=== PATIENT | male | born 1960 | race Caucasian/White ===

== ENCOUNTER → 2020-05-23 08:52 | Outpatient (CLI) | payer OTHER, SELFPAY ==
[2020-05-24 10:24] LABS: COVID19 Sendout Not Detected (Not Detect)
== END ==
PROVIDERS: Visit Provider Physician Assistant
DX: Z01.812 Encounter for preprocedural laboratory examination (principal)
CPT/HCPCS: 87635

== ENCOUNTER 2020-05-25 06:01 | Inpatient (IN) | payer OTHER, SELFPAY ==
[2020-05-12 08:59] VITALS: BMI 23.1
[2020-05-25] VITALS (19 sets, daily range): BP systolic 124–162; BP diastolic 64–95; PULSE 71–92; RESP 11–19; TEMP 35.9–37.4; O2SAT 94–100; BMI 21.7
--- NOTE | 2020-05-25 | DI.RAD.S_ITS ---
PROCEDURE: XR LUMBAR SPINE 2-3V INDICATIONS: L4-5, L5-S1 TLIF TECHNIQUE: 2 intraoperative fluoroscopic views of the lumbar spine were acquired. COMPARISON: None. FINDINGS: Intraoperative fluoroscopic images shows transpedicular fusion of L4-S1 vertebral bodies with intervertebral spacer placement at L4-5 and L5-S1 levels. IMPRESSION: Fluoroscopy guidance was provided intraoperatively for fusion of L4-S1 vertebral bodies. Dictated by: Miguel Shaw M.D. on 05/25/2020 at 12:10 Approved by: Miguel Shaw M.D. on 05/25/2020 at 12:11
[2020-05-25] MEDS: LACTATED RINGERS 1,000 ML 42 ML IV ×2 (07:10→09:45)
--- NOTE | 2020-05-25 07:36 | PM.PREOP ---
Pre-operative Note COVID-19 COVID-19 status: Negative Result date/Date tested (Pos, Neg/Pending): 05/23/20 Interval Note History & Physical reviewed/Exam performed by Physician: Yes Changes to H&P: No
[2020-05-25] MEDS: CLINDAMYCIN 900 MG/50 ML PIGGYBACK 50 MG IV ×3 (07:46→23:40)
--- NOTE | 2020-05-25 08:22 | SUR.OPER ---
Prone on spine table, head in foam head support, padded chest and pelvic supports, gel pad at knees, lower legs supported by pillows; nipples, genitalia and toes free of pressure, arms secured on foam padded arm boards at <90 degrees abduction. Tape over blanket at thigh secured to table.
[2020-05-25] MEDS: BUPIVACAINE LIPOSOME 266 MG/20 ML VIAL INJ (08:35)
[2020-05-25] MEDS: BUPIVACAINE 0.25% W/ EPI 30 ML VIAL INJ (08:35)
--- NOTE | 2020-05-25 11:29 | P.OP_ITS ---
Operative Date/Time/Diagnoses Date of procedure: 05/25/20 Time of procedure: 08:09 Pre-op diagnosis: 1. Lumbar spinal stenosis L4-5, L5-S1 2. Lumbar spondylosis with radiculopathy L4-5, L5-S1 3. L5 pars defect Post-op diagnosis: same Procedure & Clinicians Procedure: 1. L4-5, L5-S1 Postero-lateral and posterior interbody fusion 2. L4-5, L5-S1 interbody cage placement. 3. L4-5, L5-S1 decompressive laminectomy with bilateral facetecomies 4. L4-5, L5-S1 Posterior segmental instrumentation 5. Danielson of bone marrow from iliac crest 6. Utilization of microsurgical technique and operating microscope Same procedure as scheduled: Yes Indications: Patient has been having chronic back pain and worsening lumbar radiculopathy. Patient failed multiple conservative management with worsening pain weakness and numbness in her lower extremity. Patient has been having difficulty performing activity of daily living. After discussing risks benefits of treatment options, patient elected proceed with surgery. Surgeon: Starla Daniels Flight Follower: Lisette Carvalho Click Yes if Unassisted: No Anesthesia Type: General Operative Notes Closure Type: primary Specimen(s): none sent Prosthetic devices, grafts, tissues, transplants, or devices: Globus revolve screws, Rise cages Applied: catheter Estimated Blood Loss (mL): 150 Blood products transfused: none Procedure in detail: Patient was seen in the preoperative area. Risks and benefits of the surgery was discussed with the patient. Informed consent was obtained from the patient and placed in the chart. Surgical site was marked. Patient was taken to the operative room. General anesthesia was administered. Prophylactic antibiotic was given to the patient less than 30 min before the incision was made. Patient was placed into a prone position on the [facility] e. Patient's back was then prepped and draped in the sterile fashion. Time-out was performed at this time. Using AP and lateral C-arm imaging the interval between L4-S1 was identified and marked on patient's back. A 2 inch incision 2 in from midline was made on the right side first. The fascia was incised in line with skin incision. Globus MARS retractors was placed inside the incision and docked onto the L4 and L5 lamina. Using microsurgical technique and operating microscope, a L4 and L5 laminectomy and L4-5 L5-S1 facetectomy was performed using a Kerrison rongeur. During the process of decompression more than 75% of bilateral L4-5 L5-S1 facets were removed in order to decompress the spinal canal and the lateral recess. Patient was found have severe neuroforaminal stenosis which was fully decompressed after the laminectomy and facetectomy was completed at L4-5 L5-S1 level. The L4-5 L5-S1 level was grossly unstable after the decompression was completed and requiring the fusion procedure. The disc space at L4-5, L5-S1 was identified. And a total diskectomy was performed at L4-5, L5-S1 level. The endplates were decorticated using a rasp and shaver. The total diskectomy and d ecortication was performed at L4-5, L5-S1 level in order to to accomplish a L4- 5, L5-S1 fusion. The local bone from the laminectomy and facetectomy was saved for local bone grafting. After the total diskectomy and decortication was completed, Trifecta bone graft material was combined with local bone that was harvested earlier. At this time, a separate skin is incision was made over the iliac crest. A Jamshidi needle was inserted into the iliac crest through a separate skin incision. 5 cc of bone marrow aspiration was obtained through the separate skin incision using a Jamshidi needle from the iliac crest. The bone marrow aspiration was combined with local bone and the Trifecta bone grafting material. The bone grafting material was placed into the L4-5, L5-S1 interbody space along with two cages, one expandable cage at each level. The cages were expanded to their maximum height using the torque limiting screwdriver. At this time a mirror image incision was made on the left side. The fascia was incised in line with the skin incision. Globus MARS retractor was inserted and docked onto the L4-5, L5-S1 posterolateral gutter. Using the power drill, posterior-lateral decortication was performed at L4-5, L5-S1 level until bleeding cortical bone was identified. The remaining bone grafting material was placed into the L4-5 L5-S1 posterior lateral gutter he order to accomplish po sterolateral fusion at the L4-5 L5-S1 levels. Using the double C-arm technique, pedicle screws were placed into the L4, L5, S1 pedicles bilaterally. This was done by placing the Jamshidi needle into the pedicles, then placing the guidewires over the Jamshidi needle, and finally placing the cannulated screws over the guidewires bilaterally. After the pedicle screws were placed, 2 titanium rods was locked into the heads of the pedicle screws using locking caps and torque limiting screwdriver. Total 6 pedicles screws were placed. After all the hardware was placed, and confirmed with AP and lateral C-arm imaging, the wound was then irrigated with sterile normal saline and packed with Ray-Yue gauze for 3 min to accomplish hemostasis. After the gauze was removed the deep fascia was closed with #1 Vicryl suture. The subcutaneous layer was closed with 2-0 Vicryl. The skin was closed with skin davis. Patient tolerated the procedure well. There were no complications. Complications: none Post-operative Condition: stable Disposition: PACU Plan for aftercare: Admit to inpatient hospital
[2020-05-25] MEDS: fentaNYL 100 MCG/2 ML INJ IV ×2 (11:37→11:45)
[2020-05-25] MEDS: SODIUM CHLORIDE 0.9% 1,000 ML 100 ML IV (12:30)
[2020-05-25] MEDS: HYDROMORPHONE 0.5 MG INJ IV ×2 (13:32→16:07)
[2020-05-25] MEDS: ACETAMINOPHEN 325 MG TABLET 650 MG PO (13:32)
[2020-05-25] MEDS: OXYCODONE IR 5 MG TABLET 10 MG PO ×3 (13:49→19:34)
--- NOTE | 2020-05-25 14:15 | CM.DANOTE ---
DCP: Case received, EMR reviewed. Checked on patient, was at bedside. He just arrived from surgery, and was having some discomforts. Name of this case checker was placed on board, and let spouse know that this case checker will check in tomorrow when patient is more stable. Was able to complete the DCP assessment based on the information available in his chart, along with H&P. Patient is a 59 year old male who admitted early this morning to the care of the orthopedic team. PCP: Unknown at this time, patient lives in [place]. Payer: [employer]. Patient came to the hospital for a surgical procedure. He had L4-5, L5-S1 postero lateral and posterior interbody fusion. Patient has history of osteoarthritis of the spine. He had been complaining of chronic back and hip pain. Checked on patient. Just came back from surgery, at bedside. Patient was awake, but moaning in pain. P: DCP will check in with patient tomorrow for any needs. Opal Yoo RN/Car Filler
--- NOTE | 2020-05-25 15:23 | PC.NURSE ---
Post-op: Late entry Arrived to room 212 at 1220. Alert and oriented X3. Rated back pain 5/10 upon arrival, but pain quickly up to 9/10 with patient writhing, moaning and uncomfortable. Medicated with PRN IV Dilaudid, Tylenol and Oxycodone per e-mar, with patient now reporting pain down to 2/10 and resting quietly. Have assisted to reposition multiple times, instructed re: logrolling and spine precautions but will need reinforcement. Fresh ice pack to back. Dressing mid low back C/D/I. CMS+, denies paresthesias. Netflix patent to gravity. IVF per orders, site in R hand WNL. SCD's to BLE's. VSS, room air with cont. pulse ox in place. Tolerating ice chips/water without N/V. Oriented to room and call light, encouraged to make needs known. Call light within reach, bed alarm on.
--- NOTE | 2020-05-25 16:24 | PT.IIE ---
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, lumbosacral region (05/25/20) Spinal stenosis, lumbar region without neurogenic claudication (05/25/20) Surgery Performed Operation Date: 05/25/20 07:45 Actual Procedures p L4-5, L5-S1 TLIF w/ posterior instrumentation - Starla Daniels MD Surgical History (Last Updated 05/12/20 @ 09:12 by Ariadna Rusos RN) History of vasectomy (Acute) Hx of hernia repair (Acute) Hx of removal of cyst (Acute) Medical History (Last Updated 05/12/20 @ 09:12 by Ariadna Russo RN) Arthritis (Acute) Former smoker (Acute) CROW (obstructive sleep apnea) (Acute) Panic attacks (Acute) Pre-diabetes (Acute) Sciatica (Acute) Spinal stenosis (Acute) Physical Therapy Inpatient Evaluation/Re-Eval M1 PT/OT-IP Prior Functional Status Start: 05/25/20 10:49 Freq: NEEDED Status: Active Protocol: Document 05/25/20 16:02 AW (Rec: 05/25/20 16:24 AW [email or web address]) Medical Review Prior Functional Status Medical History Reviewed Yes Diet/Fluid Consistency Regular Communication WNL. Pt is an effective verbal communicator. Mobility and Gait Pt is an independent community ambulator. He denies any limit to how far he can walk at baseline. Activities of Daily Living and IADL's Independent with all ADL/IADL' s. Pt is an active batch mixing truck driver. Social History Household Members spouse,children Living Arrangements House Number of Floors (Floors) One Floor Number of Stairs To Enter/Railing? Ramped entry. 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 He lives with his , Marly, who will be available and able to assist full-time at discharge. Pt's son and daughter in law also live in the home. Pt's daughter and her children live two doors down. M2 PT-IP Current Condition Start: 05/25/20 10:49 Freq: NEEDED Status: Active Protocol: Document 05/25/20 16:02 AW (Rec: 05/25/20 16:24 AW [email or web address]) Physical Therapy Current Condition Current Condition Evaluation Date 05/25/20 Treatment Diagnosis s/p L4-5 L5-S1 TLIF; impaired mobility Onset Date 05/25/20 Precautions Lumbar Precautions Log Roll,No Twisting,Limit Bending,Lifting Restriction of 10 lbs,Gait Belt above Incisional Area M3 PT-IP Subjective Start: 05/25/20 10:49 Freq: NEEDED Status: Active Protocol: Document 05/25/20 16:02 AW (Rec: 05/25/20 16:24 AW [email or web address]) Subjective Physical Therapy Visit Type Type Initial Evaluation Visit Start Time 15:27 Visit Stop Time 15:52 Total Visit Minutes 25 Physical Therapy Visit Comments Patient Comments Pt reports better pain control than earlier in PM. He is willing to participate with PT . Patient Goals Pt hopes to discharge home with family support Therapy Pain Assessment Pain When Pain Assessed During Mobility Pain Present Pain Present Pain Reported Location Lower Back Intensity 5 Scale Used 2/10 at rest; 5/10 with mobility Pain Behaviors Facial Grimacing,Guarding, Wincing Pain Management Techniques Apply Cold,Re-positioning, Timing of Activity with Medications M4 PT-IP Mobility and Gait Start: 05/25/20 10:49 Freq: NEEDED Status: Active Protocol: Document 05/25/20 16:02 AW (Rec: 05/25/20 16:24 AW [email or web address]) PT-Bed Mobility Assessment Supine to Sit Supine to Sit Minimal Assistance,1 Person Assistance Sit to Supine Sit to Supine Minimal Assistance,1 Person Assistance PT-Transfer Assessment Comments Mobility Comments Pt was sidelying on his right side upon PT arrival. BP was 125/76. With verbal cues and min A x 1, pt completed sidelying to sit. BP after two minutes sitting was 139/100. Pt reported nausea, lightheadedness, and chills as his color drained and skin was clammy. He was provided an emesis bag and he wretched unproductively. Pt became diaphoretic as other symptoms continued. Pt was returned to sidelying min A x 1. BP after 2 minutes was 140/76. SpO2 remained 99-100% throughout assessment on room air. Pt was positioned in the bed in sidelying with pillow between his knees, ice pack applied to operative site, and call light within reach. Reported these events to the RN. Gait Assessment Comments Gait Comments Unable due to symptoms Stair Climbing Assessment Comments Stair Climbing Comments Not assessed. Pt has ramped entry to his home. PT-Balance Assessment Sitting Balance and Reactions Static Sitting Balance Ability Good Dynamic Sitting Balance Ability Fair M5 PT-IP Objective Assessments Start: 05/25/20 10:49 Freq: NEEDED Status: Active Protocol: Document 05/25/20 16:02 AW (Rec: 05/25/20 16:24 AW [email or web address]) Orientation Orientation/Cognition Level of Alertness Alert Orientation Name,Month,Year,Place, Situation Language Function Ability No Deficits Noted Safety Awareness Understands Safety Issues Memory Description No Deficits Noted Comments Pt was groggy and had difficulty keeping his eyes open once he became symptomatic. Gross Range of Motion Lower Extremity ROM Assessment Within Functional Limits Strength Lower Extremity Strength Assessment Within Functional Limits Comments Strength Comments BLE grossly 4/5 Coordination Assessment Gross Coordination Gross Coordination WNL Sensation Assessment Sensation Gross Sensation WNL Comments Sensation Comments Limited exam due to pt presentation Muscle Tone Muscle Tone WNL Yes M6 PT-IP Treatment Start: 05/25/20 10:49 Freq: NEEDED Status: Active Protocol: Document 05/25/20 16:02 AW (Rec: 05/25/20 16:24 AW [email or web address]) Physical Therapy Treatment Education Education Provided Precautions,Weight Bearing Status,Post-Op Packet,Safety Other Treatments Other Treatment Performed Provided education on role of PT, plan of care, post-op precautions. M7 PT-IP Assessment and Plan Start: 05/25/20 10:49 Freq: NEEDED Status: Active Protocol: Document 05/25/20 16:02 AW (Rec: 05/25/20 16:24 AW [email or web address]) PT Summary Assessment and Plan Potential Rehabilitation Potential Good Status of Condition at Evaluation Unstable Summary Impairments Pain,ROM,Strength,Balance,Bed Mobility,Transfers,Gait, Activity Tolerance Assessment Summary Ed is a 59 yo man seen for PT evaluation on POD0 following L4-5 L5 S1 TLIF. He is independent in all regards at baseline and denies use of any assistive device. Evaluation was limited due to pt presentation with nausea, diaphoresis, and chills during bed mobility. PT will continue to assess and provide discharge recommendation as pt progresses. Goals Bed Mobility Goal Standby Assistance Transfer Goal Standby Assistance,Four Wheeled Walker Gait Goal Standby Assistance,Four Wheel Walker Gait Distance 200 Days to Meet Goals 3 Frequency of Treatment Frequency Of Treatment Twice a Day Treatment Plan Physical Therapy Treatment Plan Bed Mobility Training,Transfer Training,Gait Training, Therapeutic Exercise,Balance Retraining,Post Op Education, Discharge Planning,Hot or Cold Pack Other Recommendations and Next Treatment assess gait with FWW (and 4WW Focus if safe); bed mobility and transfers; review precautions Recommendations To Nursing Amount of Assist Needed 1 Person Assist Discharge Recommendations PT Discharge Recommendations Home with Assistance Other Discharge Recommendations Will continue to assess and refine recommendation Equipment Needed for Home Before FWW if unsafe with 4WW, may Discharge need shower seat Transportation Needs at Discharge Private Vehicle
[2020-05-25] MEDS: hydrOXYzine pamoate 25 MG CAPSULE PO (16:35)
[2020-05-25] MEDS: OXYCODONE ER 10 MG TAB PO (21:38)
--- NOTE | 2020-05-25 22:42 | PC.NURSE ---
PATIENT VOMITED UP THE OXYCONTIN ABOUT 30 MINUTES AFTER TAKING,PILL WAS FOUND IN BAG.DENIES NAUSEA AT THIS TIME,DENIES PAIN AT THIS TIME.
[2020-05-26] VITALS (7 sets, daily range): BP systolic 127–140; BP diastolic 71–92; PULSE 85–95; RESP 14–20; TEMP 37.1–37.9; O2SAT 97–98
[2020-05-26] MEDS: hydrOXYzine pamoate 25 MG CAPSULE PO ×2 (01:49→19:42)
[2020-05-26] MEDS: OXYCODONE IR 5 MG TABLET 10 MG PO ×3 (01:49→08:07)
--- NOTE | 2020-05-26 02:04 | PC.NURSE ---
Addendum entered by Chel Lowe R.N. 05/26/20 04:48: Complains of 6/10 back pain so medicated with Oxycodone. Assisted back to bed Addendum entered by Chel Lowe R.N. 05/26/20 03:52: Up to chair with walker and 1 assist. Started to perspire and complained of feeling hot but was afebrile. Shortly after started to dry heave; medicated with Zofran. Original Note: Patient seen and assessed at 2351. Is alert and oriented. Breath sounds CTA with RA sat of 99%. HRR. BP elevated at 153/92 which is fairly stable with previous readings. Denies nausea. BT hypoactive; denies flatus. Indwelling catheter intact; patent. Is able to turn himself in bed. Dressing to back is CDI. Has not yet been out of bed. Complains of numbness in left thigh but CMS is otherwise intact. States pain was at 4/10 and declined pain medication and/or ice pack. Currently is stating pain now up to 6/10 so medicated with Oxycodone + Vistaril. wearing bilateral calf SCD's. Fall risk is moderate; bed alarm is activated.
[2020-05-26] MEDS: ONDANSETRON 4 MG/2 ML INJ IV ×3 (03:49→17:01)
[2020-05-26 06:08] LABS: Hematocrit 38.9 % (41-53); Hemoglobin 13.5 g/dL (13.5-17.5)
--- NOTE | 2020-05-26 08:05 | P.PN_ITS ---
Subjective Subjective Date Patient Seen: 05/26/20 Time Patient Seen: 08:05 Interval history: Postop day [address] Daniels posterior spinal fusion. At some pain control issues initially but is feeling much better this morning. Nurse does report that did throw up the OxyContin tablets got yesterday. He has been doing fine with plain oxycodone since. He is eager to get up to a chair and work with physical therapy today. Denies nausea or vomiting this morning. Exam Vital Signs (past 8 hours): - 05/26/20 03:00 05/26/20 07:25 Temperature 98.7 F 99.8 F H Pulse Rate 95 H 86 Respiratory Rate 18 16 Blood Pressure 135/92 H 128/71 Pulse Oximetry 97 98 Oxygen Delivery Method Room Air Oxygen Flow Rate 0 Narrative Exam Narrative: General exam alert oriented male no acute distress Respiratory exam unlabored on room air HEENT exam normocephalic atraumatic Heart regular rate and rhythm Musculoskeletal exam: Demonstrates dorsiflexion plantar flexion bilateral e xtremities. SCDs in place Objective Labs Result Diagrams: 05/26/20 05:42 Labs: Laboratory Results - last 24 hr 05/26/20 05:42 Hgb 13.5 Hct 38.9 L Assessment & Plan Post-op Postoperative Procedures: Procedures Operation Date: 05/25/20 07:45 Actual Procedures Side Surgeon p L4-5, L5-S1 TLIF w/ posterior instrumentation Starla Daniels MD postop day 1. Work on pain control today. We will focus on oxycodone. If not controlled and can add back the long-acting. Work with physical therapy. Discharge when pain controlled and cleared with therapy. Quality VTE Deep Vein Thrombosis/Pulmonary Embolism Present on Admission: No
[2020-05-26] MEDS: DOCUSATE 100 MG CAPSULE PO ×2 (08:07→20:35)
[2020-05-26] MEDS: ACETAMINOPHEN 325 MG TABLET 650 MG PO ×2 (08:08→22:18)
[2020-05-26] MEDS: SODIUM CHLORIDE 0.9% 1,000 ML 100 ML IV (09:46)
--- NOTE | 2020-05-26 10:36 | OT.IP.EVAL ---
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, lumbosacral region (05/25/20) Spinal stenosis, lumbar region without neurogenic claudication (05/25/20) Surgery Performed Operation Date: 05/25/20 07:45 Actual Procedures p L4-5, L5-S1 TLIF w/ posterior instrumentation - Starla Daniels MD Past Medical History (Last Updated 05/12/20 @ 09:12 by Ariadna Russo RN) Arthritis (Acute) Former smoker (Acute) CROW (obstructive sleep apnea) (Acute) Panic attacks (Acute) Pre-diabetes (Acute) Sciatica (Acute) Spinal stenosis (Acute) Surgical History (Last Updated 05/12/20 @ 09:12 by Ariadna Russo RN) History of vasectomy (Acute) Hx of hernia repair (Acute) Hx of removal of cyst (Acute) Occupational Therapy Inpatient Evaluation/Re-Eval M1 PT/OT-IP Prior Functional Status Start: 05/26/20 12:25 Freq: NEEDED Status: Active Protocol: Document 05/26/20 10:05 [facility] (Rec: 05/26/20 12:42 [facility] [id number]) Medical Review Prior Functional Status Medical History Reviewed Yes Diet/Fluid Consistency Regular Communication WNL. Pt is an effective verbal communicator. Mobility and Gait Pt is an independent community ambulator. He denies any limit to how far he can walk at baseline. Activities of Daily Living and IADL's Independent with all ADL/IADL' s. Pt is an active retail delivery driver. Social History Household Members spouse,children Living Arrangements House Number of Floors (Floors) One Floor Number of Stairs To Enter/Railing? Ramped entry. 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 He lives with his , Marly, who will be available and able to assist full-time at discharge. Pt's son and daughter in law also live in the home. Pt's daughter and her children live two doors down. M2 OT-IP Current Condition Start: 05/26/20 12:25 Freq: Status: Active Protocol: Document 05/26/20 10:05 [facility] (Rec: 05/26/20 12:42 [facility] [id number]) Occupational Therapy Current Condition Current Condition Evaluation Date 05/26/20 Treatment Diagnosis Spinal stenosis s/p L4-5, L5- S1 TLIF Diagnosis Onset Date 05/25/20 Post Operative Precautions Lumbar Precautions Log Roll,No Twisting,Limit Bending,Lifting Restriction of 10 lbs,Gait Belt above Incisional Area Weight Bearing Status Weight Bearing Status Weight Bear as Tolerated M3 OT- IP Subjective and Pain Start: 05/26/20 12:25 Freq: Status: Active Protocol: Document 05/26/20 10:05 [facility] (Rec: 05/26/20 12:42 [facility] [id number]) OT- Subjective Occupational Therapy Visit Type Type Initial Evaluation Visit Start Time 10:05 Visit Stop Time 10:36 Total Visit Minutes 31 Occupational Therapy Visit Comments Patient Comments Pt agreeable to get up for OT eval. Patient/Caregiver Goals TO go home. OT Pain Assessment Pain When Pain Assessed During Mobility Pain Present Pain Present Pain Reported Location Lower Back Intensity 4 M4 OT- IP ADL's Start: 05/26/20 12:25 Freq: Status: Active Protocol: Document 05/26/20 10:05 [facility] (Rec: 05/26/20 12:42 [facility] [id number]) OT [id number] Comments OT Self-Feeding Comments Not at meal time, pt independently able to drink from water bottle. OT ADL-Grooming Comments OT Grooming Comments Pt states already completed. Educated to incorporate back precautions to bend at hips or spit into a cup for grooming needs. In addition to have FWW in front of him. OT ADL-Dressing General Eval Lower Body Dressing Ability Maximum Assistance Comments OT Dressing Comments Pt not able to cross his legs over for LB dressing and educated on LB dressing equipment so able to safely do socks on his own and educated on use of cmv driver to assist to help get clothing over his feet. Pt able to state good understanding. OT ADL-Toileting Comments OT Toileting Comments Pt had escalona in place. Pt able to safely sit down to the toilet and educated to lean to the side and pt able to wipe appropriately to follow back precautions, otherwise other option given is that pt could stand and wipe. OT ADL-Bathing Comments OT Bathing Comments Pt not wanting to shower. Pt shown to put hands on the wall to help step in for his tub/ shower and would benefit from a shower chair and to assist. Pt states to look into getting a shower chair. M5 OT- IP IADL's Start: 05/26/20 12:25 Freq: Status: Active Protocol: Document 05/26/20 10:05 [facility] (Rec: 05/26/20 12:42 [facility] [id number]) OT-Instrumental Activities of Daily Living Home Safety Awareness Awareness of Need for Assistance at Home Good Awareness Ability to Problem Solve Emergency Able to Problem Solve Situations Medication Management Medication Management No Deficits Identified Money Management Money Management Comments pays the bills. Meal Preparation Meal Preparation Caregiver Provides Assist Document Improvement Specialist Document Improvement Specialist Caregiver Provides Assist Driving Driving Comments to drive now. M6 OT- IP Functional Cognition Start: 05/26/20 12:25 Freq: Status: Active Protocol: Document 05/26/20 10:05 [facility] (Rec: 05/26/20 12:42 [facility] [id number]) Cognitive Factors Limiting Selfcare Function Cognitive Ability Level of Alertness Alert Patient Orientation Name,Age,Birthday,Month,Date, Year,Day of Week,Place, Situation Attention Span Ability Capable of Focused Attention, Capable of Sustained Attention Ability to Follow Commands Able to Follow Multi-Step Commands Memory Description No Deficits Noted Safety Awareness Decreased Ability to Apply Precautions Cognitive Comments Cognitive Assessment Comments Initial vc to push up at least one hand on the FWW, otherwise able to show and demonstrate good safety for back precautions. OT- Vision and Hearing OT- Hearing Assessment OT- Hearing Assessment WFL OT- Vision Assessment Visual Acuity WFL Vision Assessment Comments Pt has glasses but does not wear them much. M7 OT- IP Mobility and Balance Start: 05/26/20 12:25 Freq: Status: Active Protocol: Document 05/26/20 10:05 [facility] (Rec: 05/26/20 12:42 [facility] [id number]) OT- Bed Mobility Assessment Rolling Type of Rolling Roll to Left Level of Assistance Standby Assistance Supine to Sit Supine to Sit Assist Standby Assistance Scooting Scooting to Edge of Bed Standby Assistance OT-Transfer Assessment Sit to and From Stand Sit to and from Stand Standby Assistance Transfers Transfer Ability Standby Assistance Technique Transfer Destination Bed,Chair,Toilet Transfer Technique Stand Step Pivot Devices Transfer Assistive Devices Gait Belt,Front Wheeled Walker Comments Mobility Comments SBA to distant SBA with FWW, just occasional reminder to keep FWW in front of him. OT- Gait Assessment Comments Gait Ability Comments SBA with FWW. PT to access safety of 4ww. OT- Balance Assessment Sitting Balance and Reactions Static Sitting Balance Ability Normal Dynamic Sitting Balance Ability Good Standing Balance and Reactions Static Standing Balance Ability Good M8 OT- IP Objective Assessments Start: 05/26/20 12:25 Freq: Status: Active Protocol: Document 05/26/20 10:05 [facility] (Rec: 05/26/20 12:42 [facility] [id number]) OT Gross Range of Motion Upper Extremity Range of Motion Assessment Within Functional Limits OT Strength Upper Extremity Strength Assessment Within Functional Limits OT-Muscle Tone Assessment Muscle Tone WNL Yes M9 OT- IP Assessment and Plan Start: 05/26/20 12:25 Freq: Status: Active Protocol: Document 05/26/20 10:05 [facility] (Rec: 05/26/20 12:42 [facility] [id number]) OT Summary Assessment and Plan Potential Rehabilitation Potential Excellent Analytic Complexity at Evaluation Low Summary OT Impairments Functional Mobility,Dressing, Toileting,Bathing,Toilet Transfers,Shower Transfers Progress Towards Goals Progressing Toward Goals Assessment Summary Pt low complexity and doing well from s/p L4-5, L5-S1 TLIF and SBA for most needs at this time. Pt has a supportive family that can assist him for all needs if needed. Pt issued LB dressing equipment and able to show good safety and understanding for dressing needs. Pt looking to get a shower chair. Pt to go home with family when medically stable. Goals Grooming Goal Independent Dressing Goal Independent Toileting Goal Independent Bathing Goal Standby Assistance Toilet Transfer Goal Independent Shower Transfer Goal Standby Assistance Patient/Caregiver Education Goal Demonstrate Post-Op Precautions,Caregiver Independent Assisting Patient Days to Meet Goals 1 Frequency of Treatment Frequency Of Treatment Once a Day Treatment Plan OT Treatment Plan ADL Training,Functional Mobility,Patient/Family Education,Discharge Planning Other Treatment Recommendations and Next Shower if still here. Treatment Focus Discharge Recommendations OT Discharge Recommendations Home with Assistance Home Equipment Needs Shower chair, LB dressing equipment issued. Transportation Needs at Discharge Private Vehicle
--- NOTE | 2020-05-26 11:06 | PT.IPTN ---
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, lumbosacral region (05/25/20) Spinal stenosis, lumbar region without neurogenic claudication (05/25/20) Surgery Performed Operation Date: 05/25/20 07:45 Actual Procedures p L4-5, L5-S1 TLIF w/ posterior instrumentation - Starla Daniels MD Physical Therapy Treatment Note M2 PT-IP Current Condition Start: 05/25/20 10:49 Freq: NEEDED Status: Active Protocol: Document 05/25/20 16:02 AW (Rec: 05/25/20 16:24 AW [id number]) Physical Therapy Current Condition Current Condition Evaluation Date 05/25/20 Treatment Diagnosis s/p L4-5 L5-S1 TLIF; impaired mobility Onset Date 05/25/20 Precautions Lumbar Precautions Log Roll,No Twisting,Limit Bending,Lifting Restriction of 10 lbs,Gait Belt above Incisional Area M3 PT-IP Subjective Start: 05/25/20 10:49 Freq: NEEDED Status: Active Protocol: Document 05/26/20 10:56 [facility] (Rec: 05/26/20 11:06 AW [id number]) Subjective Physical Therapy Visit Type Type Treatment Note Visit Start Time 10:34 Visit Stop Time 10:55 Total Visit Minutes 21 Physical Therapy Visit Comments Patient Comments Pt denies nausea and is interested in getting out for a walk. Therapy Pain Assessment Pain When Pain Assessed During Mobility Pain Present Pain Present Allowed to Sleep Location Lower Back Intensity 2 Scale Used 2/10 at rest; unchanged during mobility Pain Management Techniques Timing of Activity with Medications M4 PT-IP Mobility and Gait Start: 05/25/20 10:49 Freq: NEEDED Status: Active Protocol: Document 05/26/20 10:56 [facility] (Rec: 05/26/20 11:06 AW [id number]) PT-Bed Mobility Assessment Rolling Type of Rolling Log Rolling,Roll to Right,Roll to Left Level of Assist Standby Assistance Supine to Sit Supine to Sit Standby Assistance Sit to Supine Sit to Supine Standby Assistance Scooting Scooting to Edge of Bed Independent Scooting Up and Down in Bed Independent PT-Transfer Assessment Sit to and From Stand Sit to and from Stand Standby Assistance,Use of Upper Extremities Equipment Transfer Assistive Device Gait Belt,Front Wheeled Walker ,4 Wheeled Walker Transfers Transfer Destination Bed,Chair Transfer Technique pt ambulated with FWW and 4WW Transfer Ability Level of Assist Standby Assistance Comments Mobility Comments Pt completed bed mobility and transfers with SBA. Provided education and demonstration for setting brakes on 4WW which pt was able to apply without further instruction. He showed good safety awareness and was able to maintain precautions during all mobility. Gait Assessment Gait Gait Assistance Required: Standby Assistance Distance (Feet) 600 Assistive Devices Assistive Device Front Wheeled Walker,4 Wheeled Walker Gait Deviations General Gait Pattern Decreased Feet Clearance, Flexed Trunk Factors Limiting Gait Function Factors Limiting Gait Function Decreased Activity Tolerance, Limited Range of Motion,Pain Comments Gait Comments Pt completed three laps around the [place] [facility]. First lap was with FWW; second and third lap were with the 4WW. Pt was safe with both devices but felt more comfortable with the 4WW. Pt used AD primarily for balance and was not bearing weight through his UE's, so PT agreed 4WW was appropriate at this time. Stair Climbing Assessment Comments Stair Climbing Comments Not assessed. Pt has ramped entry to his home. PT-Balance Assessment Sitting Balance and Reactions Static Sitting Balance Ability Normal Dynamic Sitting Balance Ability Normal Standing Balance and Reactions Static Standing Balance Ability Good Dynamic Standing Balance Ability Good M5 PT-IP Objective Assessments Start: 05/25/20 10:49 Freq: NEEDED Status: Active Protocol: Document 05/25/20 16:02 AW (Rec: 05/25/20 16:24 AW [id number]) Orientation Orientation/Cognition Level of Alertness Alert Orientation Name,Month,Year,Place, Situation Language Function Ability No Deficits Noted Safety Awareness Understands Safety Issues Memory Description No Deficits Noted Comments Pt was groggy and had difficulty keeping his eyes open once he became symptomatic. Gross Range of Motion Lower Extremity ROM Assessment Within Functional Limits Strength Lower Extremity Strength Assessment Within Functional Limits Comments Strength Comments BLE grossly 4/5 Coordination Assessment Gross Coordination Gross Coordination WNL Sensation Assessment Sensation Gross Sensation WNL Comments Sensation Comments Limited exam due to pt presentation Muscle Tone Muscle Tone WNL Yes M6 PT-IP Treatment Start: 05/25/20 10:49 Freq: NEEDED Status: Active Protocol: Document 05/26/20 10:56 AW (Rec: 05/26/20 11:06 AW [id number]) Physical Therapy Treatment Education Education Provided Precautions,Safety Other Treatments Other Treatment Performed Education for safe use of 4WW including on ramp at home. M7 PT-IP Assessment and Plan Start: 05/25/20 10:49 Freq: NEEDED Status: Active Protocol: Document 05/26/20 10:56 AW (Rec: 05/26/20 11:06 AW [id number]) PT Summary Assessment and Plan Potential Rehabilitation Potential Good Status of Condition at Evaluation Stable Summary Impairments Pain,ROM,Strength,Balance,Bed Mobility,Transfers,Gait, Activity Tolerance Progress Towards Goals Safe For Discharge,Goals Met Assessment Summary Ed has met all goals and has shown good awareness of spinal precautions during all mobility. He understands how to safely use his borrowed 4WW on flat and ramped conditions . He is safe to discharge home with spouse assist once medically cleared. No need for caregiver training due to pt' s level of independence and good recall/practice of all mobility strategies and precautions. Goals Bed Mobility Goal Standby Assistance Transfer Goal Standby Assistance,Four Wheeled Walker Gait Goal Standby Assistance,Four Wheel Walker Gait Distance 200 Days to Meet Goals 1 Frequency of Treatment Frequency Of Treatment Discharge Recommendations To Nursing Amount of Assist Needed Standby Assistance Discharge Recommendations PT Discharge Recommendations Home with Assistance Transportation Needs at Discharge Private Vehicle
[2020-05-26] MEDS: OXYCODONE IR 10 MG TABLET PO ×3 (11:49→19:18)
--- NOTE | 2020-05-26 16:10 | PC.NURSE ---
Shift summary: Late entry A&O X3. Dressing to low back C/D/I. CMS+, denied paresthesias. Patient reports pain well-managed with PRN Oxycodone, Tylenol, ice and repositioning. Tolerating PO's, IV saline locked. Peralta removed at 1100 per patient request, and per PT recommendation based on how well patient mobilizing. Voided >400 ml since removal and denied any post-void urgency. Patient expressed to this ad copy writer that he would like to go home tonight- this ad copy writer spoke with ortho DAVID Carolina and informed of the same. Per DAVID Carolina, Dr Daniels wanted patient to stay until tomorrow- this ad copy writer let patient know and he was agreeable with that plan. Resting in bed at shift change and was asking for pain meds which anna shift RN was going to take care of. Call light within reach, bed alarm on.
[2020-05-26] MEDS: SODIUM CHLORIDE 0.9% FLUSH 10 ML IV (20:35)
[2020-05-26] MEDS: SENNOSIDES 8.6 MG TABLET 17.2 MG PO (20:35)
--- NOTE | 2020-05-26 22:52 | PC.NURSE ---
pt c/o nausea after taking oxycodone, administered zofran. pt did not eat dinner. He had another dose of pain med and started having mild nausea, administered vistaril which gave him some relief. Pt ambulated in hallways. dressing intact. safety checks. call light in reach. bed alarm active.
[2020-05-27] MEDS: hydrOXYzine pamoate 25 MG CAPSULE PO (01:13)
[2020-05-27] MEDS: ONDANSETRON 4 MG/2 ML INJ IV (01:13)
[2020-05-27] MEDS: OXYCODONE IR 10 MG TABLET PO ×2 (01:21→04:46)
[2020-05-27] MEDS: SODIUM CHLORIDE 0.9% FLUSH 10 ML IV ×2 (01:23→10:25)
[2020-05-27 03:15] VITALS: BP 130/87; PULSE 88; RESP 18; TEMP 37.3; O2SAT 98
[2020-05-27] MEDS: ACETAMINOPHEN 325 MG TABLET 650 MG PO ×2 (04:46→10:23)
[2020-05-27 08:26] VITALS: BP 131/85; PULSE 91; RESP 18; TEMP 37.1; O2SAT 97
--- NOTE | 2020-05-27 09:40 | CM.DPC ---
DCP Discharge Home Per Ortho MD, pt medically stable to d/c home today with no identified barriers to discharge. Per PT/OT, recommend safe d/c home with assist and no needs. Plan: Patient to d/c home via spouse POV and no SW needs at this time. DORITA Sawant
[2020-05-27] MEDS: DOCUSATE 100 MG CAPSULE PO (10:23)
--- NOTE | 2020-05-27 11:21 | PM.PN.1 ---
Exam Vital Signs (past 8 hours): - 05/27/20 08:26 Temperature 98.7 F Pulse Rate 91 H Respiratory Rate 18 Blood Pressure 131/85 Pulse Oximetry 97 Oxygen Delivery Method Room Air Oxygen Flow Rate 0 Objective Labs Result Diagrams: 05/26/20 05:42 Assessment & Plan Assessment & Plan narrative: Patient is admitted after surgery POD#2 s/p lumbar fusion. Patient has been stable and progressing with physical therapy. Patient is neurovascularly intact on exam. Patient has no signs or symptoms of DVT. Patient's dressing is clean dry and intact. Will discharge today to home once cleared by PT/OT. Quality VTE Deep Vein Thrombosis/Pulmonary Embolism Present on Admission: No
--- NOTE | 2020-05-27 11:55 | PC.NURSE ---
Patient is A&Ox3, given tylenol for discomfort and helpful. Dressing to lower back changed to coversite, he had a shower with the help of O.T. Up and ambulating in the halls with his fww. States that the numbness to his upper l.thigh is resolving. Patient is being discharged from hospital around 1300, his daughter is going to pick him up.
--- NOTE | 2020-05-27 12:24 | OT.IP.TRT ---
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, lumbosacral region (05/25/20) Spinal stenosis, lumbar region without neurogenic claudication (05/25/20) Surgery Performed Operation Date: 05/25/20 07:45 Actual Procedures p L4-5, L5-S1 TLIF w/ posterior instrumentation - Starla Daniels MD Occupational Therapy Treatment Note M2 OT-IP Current Condition Start: 05/26/20 12:25 Freq: Status: Active Protocol: Document 05/26/20 10:05 [facility] (Rec: 05/26/20 12:42 [facility] [id number]) Occupational Therapy Current Condition Current Condition Evaluation Date 05/26/20 Treatment Diagnosis Spinal stenosis s/p L4-5, L5- S1 TLIF Diagnosis Onset Date 05/25/20 Post Operative Precautions Lumbar Precautions Log Roll,No Twisting,Limit Bending,Lifting Restriction of 10 lbs,Gait Belt above Incisional Area Weight Bearing Status Weight Bearing Status Weight Bear as Tolerated M3 OT- IP Subjective and Pain Start: 05/26/20 12:25 Freq: Status: Active Protocol: Document 05/27/20 09:28 [facility] (Rec: 05/27/20 12:23 [facility] [id number]) OT- Subjective Occupational Therapy Visit Type Type Treatment Note Visit Start Time 09:28 Visit Stop Time 10:07 Total Visit Minutes 39 Occupational Therapy Visit Comments Patient Comments Pt wanting to shower. Patient/Caregiver Goals Pt wanting to go home. OT Pain Assessment Pain When Pain Assessed During Mobility Pain Present Pain Present Pain Reported Location Lower Back Intensity 2 Scale Used Numeric (0 - 10) M4 OT- IP ADL's Start: 05/26/20 12:25 Freq: Status: Active Protocol: Document 05/27/20 09:28 [facility] (Rec: 05/27/20 12:23 [facility] [id number]) OT YNJ-Etlr-Ntjzsih General Evaluation Self-Feeding Ability Independent OT ADL-Grooming General Evaluation Grooming Ability Independent OT ADL-Oral Care General Eval Oral Care Ability Independent OT ADL-Dressing General Eval Upper Body Dressing Ability Independent Lower Body Dressing Ability Standby Assistance Comments OT Dressing Comments Pt able to use LB dressing equipment for all dressing needs. OT ADL-Bathing Bathing Type Bathing Type Shower General Evaluation Bathing Ability Standby Assistance Comments OT Bathing Comments Pt able to use long handled sponge to do all bathing needs , pt having to use grab bar to stand , able to sit do to lower body needs. M5 OT- IP IADL's Start: 05/26/20 12:25 Freq: Status: Active Protocol: Document 05/26/20 10:05 [facility] (Rec: 05/26/20 12:42 [facility] [id number]) OT-Instrumental Activities of Daily Living Home Safety Awareness Awareness of Need for Assistance at Home Good Awareness Ability to Problem Solve Emergency Able to Problem Solve Situations Medication Management Medication Management No Deficits Identified Money Management Money Management Comments pays the bills. Meal Preparation Meal Preparation Caregiver Provides Assist Maintenance Director Maintenance Director Caregiver Provides Assist Driving Driving Comments to drive now. M6 OT- IP Functional Cognition Start: 05/26/20 12:25 Freq: Status: Active Protocol: Document 05/27/20 09:28 [facility] (Rec: 05/27/20 12:23 [facility] [id number]) Cognitive Factors Limiting Selfcare Function Cognitive Ability Safety Awareness Decreased Ability to Apply Precautions,Underestimates Need for Assistance Cognitive Comments Cognitive Assessment Comments Pt needing reminders to lock the 4WW, and best to sit to lety his socks. Pt was trying to stand and take off his socks while standing. M7 OT- IP Mobility and Balance Start: 05/26/20 12:25 Freq: Status: Active Protocol: Document 05/27/20 09:28 [facility] (Rec: 05/27/20 12:23 [facility] [id number]) OT-Transfer Assessment Sit to and From Stand Sit to and from Stand Standby Assistance Transfers Transfer Ability Standby Assistance Technique Transfer Destination Chair,Shower Stall Devices Transfer Assistive Devices Gait Belt,4 Wheeled Walker Comments Mobility Comments Distant SBA with 4ww. OT- Balance Assessment Sitting Balance and Reactions Static Sitting Balance Ability Normal Dynamic Sitting Balance Ability Normal Standing Balance and Reactions Static Standing Balance Ability Good M8 OT- IP Objective Assessments Start: 05/26/20 12:25 Freq: Status: Active Protocol: Document 05/26/20 10:05 [facility] (Rec: 05/26/20 12:42 [facility] [id number]) OT Gross Range of Motion Upper Extremity Range of Motion Assessment Within Functional Limits OT Strength Upper Extremity Strength Assessment Within Functional Limits OT-Muscle Tone Assessment Muscle Tone WNL Yes M9 OT- IP Assessment and Plan Start: 05/26/20 12:25 Freq: Status: Active Protocol: Document 05/27/20 09:28 [facility] (Rec: 05/27/20 12:23 [facility] [id number]) OT Summary Assessment and Plan Potential Rehabilitation Potential Excellent Analytic Complexity at Evaluation Low Summary OT Impairments Functional Mobility,Dressing, Toileting,Bathing,Toilet Transfers,Shower Transfers Progress Towards Goals Progressing Toward Goals Assessment Summary Pt doing well and has met all OT goals and looking to go home today. Mainly pt has to remember to slow down and be sure to incorporate his back precautions. Discharge Recommendations OT Discharge Recommendations Home with Assistance Home Equipment Needs Shower chair, LB dressing equipment issued. Transportation Needs at Discharge Private Vehicle
== END 2020-05-27 13:15 | disposition home or self-care (01) | DRG 455 ==
PROVIDERS: Admitting Provider Orthopaedic Surgery Orthopaedic Surgery of the Spine; Referring Provider Family Medicine; Visit Provider Orthopaedic Surgery Orthopaedic Surgery of the Spine
PROC: 0SG00AJ Fusion of Lumbar Vertebral Joint with Interbody Fusion Device, Posterior Approach, Anterior Column, Open Approach (ICD-10-PCS; principal; 2020-05-25 07:45)
DX: M47.27 Other spondylosis with radiculopathy, lumbosacral region (principal); M43.07 Spondylolysis, lumbosacral region; M48.061 Spinal stenosis, lumbar region without neurogenic claudication; G47.33 Obstructive sleep apnea (adult) (pediatric); M48.07 Spinal stenosis, lumbosacral region; M47.26 Other spondylosis with radiculopathy, lumbar region
CPT/HCPCS: 36415; 72100; 76000; 85014; 85018; 94762; 97116; 97161; 97165; 97535; C1776; C9290; J0330; J1100; J1170; J2405; J2704; J3010